=== PATIENT | female | born 1980 | race Caucasian/White ===

== ENCOUNTER 2025-10-01 13:32 | Outpatient (AMB) | payer BC, SELFPAY ==
[2025-10-01 13:44] VITALS: BMI 20.8
--- NOTE | 2025-10-01 13:44 | A.PHYSOV ---
Vital Signs 10/01/25 13:44 Height 5 ft 5 in Weight 125 lb BMI 20.8 Intake Visit Reasons: MRI followup Intake Note: Patient is a 45 year old female here to review MRI. Sales And Service Consultant Required: No Allergies naproxen Allergy (Unknown, Verified 10/01/25 13:46) Unknown Penicillins Allergy (Unknown, Verified 10/01/25 13:46) Unknown Sulfa (Sulfonamide Antibiotics) Allergy (Unknown, Verified 10/01/25 13:46) Unknown HPI Comments Details: History of Present Illness The patient is a 45 year old female presenting for evaluation of chronic low back pain. She reports her current pain level is a 4 out of 10, characterized as an ache that is worse in the mornings and at night, particularly with tossing and turning. The morning pain is sometimes severe enough to cause tears. The pain is located centrally in her low back and feels like it is spreading. She also experiences pain that wraps around into her right groin and some pain down the side of the leg consistent with iliotibial band irritation, but she denies any shooting pain, sciatica, numbness, or tingling. Aggravating factors include sitting or standing for long periods. She notes that stretching provides some relief. The pain affects her gait and has limited her ability to perform certain activities, such as lying on her stomach. She has previously tried physical therapy but found it difficult to maintain. Her past medical history is significant for polycystic kidney disease, which she confirms was seen on imaging. Patient has failed conservative treatment. I ordered MRI of the lumbar spine and we are reviewing it in person today. Pain Description - Location: Pain is primarily located in the central low back. - Radiation: Pain radiates into the right groin and down the side of the leg along the IT band. - Quality: Described as a deep ache, which can be brutal at times. - Severity: The patient rates her current pain as a 4 out of 10, though it can be severe enough to bring her to tears in the morning. - Timing and Duration: Pain is worse in the mornings and at night when turning over in bed. - Exacerbating Factors: Pain is worsened by sitting or standing for long periods and by leaning backward. - Relieving Factors: Stretching helps to alleviate the pain. - Associated Symptoms and Functional Impact: The pain affects her gait and ability to sleep, and she can no longer lie on her stomach comfortably. Results - MRI Lumbar Spine: Findings reviewed and discussed with the patient. - L5-S1: Degenerative spondylolisthesis and severe facet arthritis were noted. - Other findings: Small, non-significant bulging discs without nerve impingement and moderate arthritis at another level were identified. - CT Abdomen: Noted a cyst in the kidney, consistent with the patient's known history of polycystic kidney disease. [facility] Surgical History H/O: knee surgery History of cholecystectomy Previous section Social History Alcohol intake: current Alcohol intake frequency: holidays/special occasions only Patient Tobacco Use Status: Never used Tobacco Use of substances other than those prescribed or required for medical reasons: No Current occupational status: employed Review of Systems Narrative Review of Systems - Musculoskeletal: Reports central low back pain, right-sided groin pain, and pain along the iliotibial band. - Denies left-sided pain. - Neurological: Reports an altered gait. - Denies sciatica, shooting pain, numbness, or tingling. - Genitourinary: Reports a history of polycystic kidney disease. Physical Exam Exam Exam: Physical Exam Lumbar Spine: Examination of the lumbar spine, there is no visible swelling or deformity. She is tender to lower lumbar facets. She has full range of motion of the lumbar spine. She does have an increase in pain on the right with facet loading Special Tests: Lhermittes sign was negative Heel Toe walk is normal Left straight leg raise: Negative Right straight leg raise: Negative Special tests Harry test is negative Ganslen's test is negative SI Joint compression test negative Malinda test negative Piriformis stretch is negative Lower Extremities: Full range of motion bilateral lower extremities. No calf pain or edema. Neuro: Sensation: Intact to lower extremities bilaterally Strength L2 (Psoas): 5/5 on the left and 5/5 on the right. L3 (Quads): 5/5 on the left and 5/5 on the right. L4 (Ant tibialis): 5/5 on the left and 5/5 on the right. L5 (EHL) 5/5 on the left and 5/5 on the right. S1 (Gastroc): 5/5 on the left and 5/5 on the right. DTR L4: (Patellar) Left 2 Right 2 S1: (Achilles) Left 2 Right 2 Babinski Downgoing No pathologic clonus. No involuntary movement. Vital Signs: BMI result Body Mass Index 20.8 Assessment & Plan Assessment & Plan (1) Vertebrogenic low back pain: Code(s): M54.51 - Vertebrogenic low back pain Category: Medical Plan Pain Management - Analgesia: Current pain level is 4/10. - Affect: The patient reports the pain is affecting her quality of life, can bring her to tears, and makes her not want to do her usual activities. - Activities of Daily Living: The pain is worst in the morning and at night, disturbing sleep when she turns over. - She reports her gait is affected, and she feels she is not doing the activities she would like to be able to do. - Adverse effects of medications: Not discussed. - Aberrant behaviors: None identified. Plan Patient was informed and verbally consented to the use of an ambient scribe for clinic note documentation during this visit. 1. Chronic Low Back Pain With Lumbar Facet Arthropathy And Spondylolisthesis The patient's chronic central low back pain, which is exacerbated by extension, is consistent with the severe facet arthropathy and degenerative spondylolisthesis at L5-S1 identified on her recent MRI. Conservative treatments, including physical therapy, healthcare facility administrator, acupuncture, and medications, were discussed as options. Given the significant impact on her quality of life and her desire for more definitive treatment, the decision was made to proceed with a diagnostic and therapeutic procedure. A plan was made to perform bilateral facet joint injections at the two lower levels (L4-L5 and L5-S1) with cortisone to target the arthritis on the right. It was explained that this is not a cure but a temporary measure intended to provide 3-6 months of relief, improve quality of life, and facilitate increased activity. The procedure will be performed under fluoroscopic guidance to ensure accuracy and minimize risks such as infection, bleeding, or nerve damage. If the injections are successful, she may be a candidate for radiofrequency ablation in the future for longer-term relief. The office will obtain prior authorization from her insurance and contact her to schedule the procedure. Discussion Notes I reviewed the patient's lumbar spine MRI, which demonstrates degenerative spondylolisthesis and severe facet arthritis at L5-S1, consistent with her clinical presentation of central low back pain worse with extension. I explained to her that this is a progressive, degenerative condition for which there is no cure, but there are management options. We discussed conservative care, including physical therapy, as well as procedural options. I presented the option of a cortisone facet injection as a diagnostic and therapeutic step to reduce inflammation in the arthritic joints. I explained that the goal is temporary pain relief (approximately 3-6 months) to improve her quality of life and allow for increased physical activity. We discussed that the procedure is performed under x-ray guidance to ensure safety and precision, with small risks of infection, bleeding, or nerve damage. I also mentioned that if this provides good but temporary relief, radiofrequency ablation is a potential next step for longer-duration pain control. The patient expressed understanding and, given the current impact on her quality of life, wished to proceed with the injections. I will place an order for bilateral L4-5 and L5-S1 facet injections, and my office will handle the prior authorization and scheduling. Patient Instructions - Your back pain is caused by arthritis in the small joints of your lower spine. - We have ordered a steroid (cortisone) injection into these joints to help reduce the pain and inflammation. - This is not a cure, but it may provide pain relief for 3 to 6 months to help you be more active and improve your quality of life. - Our office will get approval from your insurance and will then call you to schedule the injection procedure. - The injection is done using an x-ray machine for safety and accuracy. - If the injection works well, we can discuss other options for longer-lasting pain relief in the future. - Continue your stretching exercises as they seem to provide some relief. Coding Level of Care Code Est Pt Level 3 (32442) Diagnoses Vertebrogenic low back pain M54.51
--- OUTSIDE RECORDS SUMMARY | 2025-10-01 19:42 | XMS_ITS | Encounter Summary ---
Author Organization [facility] Address [address] [place] [address] Care Team Providers Care Wood Milling Machine Tender Name Role Phone Juan Tony MD Primary Care Provider [phone] Encounter Details Date Type Department Care Team (Latest Contact Info) Description 03/27/2025 Lab Requisition [facility] - Main Lab [address] [facility] [place] [address] Melva Hernandez MD [address] [phone] Encounter for gynecological examination (general) (routine) without abnormal findings Social History Tobacco Use Types Packs/Day Years Used Date Smoking Tobacco: Never Smokeless Tobacco: Never Alcohol Use Standard Drinks/Week Comments Yes 0 (1 standard drink = 0.6 oz pur e alcohol) Comments No Sex and Gender Information Value Date Recorded Sex Assigned at Not on file Legal Sex Female 1:44 PM EST Gender Identity Not on file Sexual Orientation Not on file documented as of this encounter Plan of Treatment Upcoming Encounters Date Type Department Care Team (Late st Contact Info) Description 01/31/2026 1:40 PM EDT Appointment Radiology Department [address] [phone] documented as of this encounter Procedures Procedure Name Priority Date/Time Associated Diagnosis Comments PAP SMEAR Routine 03/26/2025 12:00 AM EDT Encounter for gynecological examination (general) (routine) without abnormal findings documented in this encounter Results * Pap smear (03/26/2025 12:00 AM EDT) Interpretation Negative for intraepithelial lesion or malignancy 03/28/2025 2:58 PM EDT [facility] at 1458 EDT General Categorization Negative 03/28/2025 2:58 PM EDT [facility] Specimen Adequacy Satisfactory for evaluation, endocervical/castellanos sformation zone component present 03/28/2025 2:58 PM EDT [facility] Pap Methodology Liquid Based Pap Test 03/28/2025 2:58 PM EDT [facility] Disclaimer The Pap test is a screening test which carries an inherent false negative rate. These test results should be correlated with the patient's clinical findings and history. This Pap test was processed using an automated screening system. Technical cytopathology services provided by [facility], at [address] [place] [address] (CLIA # [id number]/Sue Smith MD, Creping Machine Operator.) 03/28/2025 2:58 PM EDT [facility] Console Pap Interpretation Reported 03/28/2025 2:58 PM T [facility] Brushing/Spatula Cervix uteri structure / Unknown 03/26/2025 03/27/2025 7:20 AM EDT us Melva Hernandez MD LAB CYTOLOGY ORDERABLES Final Result [facility] [address] [place] [address], documented in this encounter Visit Diagnoses Diagnosis Encounter for gynecological examination (general) (routine) without abnormal findings documented in this encounter Care Teams Wood Milling Machine Tender Relationship Specialty Start Date End Date Juan Tony MD [address] [place] [address] PCP - General Internal Medicine 08/13/21 documented as of this encounter
--- OUTSIDE RECORDS SUMMARY | 2025-10-01 19:42 | XMS_ITS ---
Author Name [facility] Organization Unknown Care Team Organization Name Specialty Phone Email Start Date End Da te [facility] Juan Tony Primary Care 08/25/20222023
--- OUTSIDE RECORDS SUMMARY | 2025-10-01 19:42 | XMS_ITS | Clinical Summary ---
Author Organization [facility] [address] [facility] Address [address] [place] [address] Phone Care Team Providers Care Student Life Coordinator Name Role Phone Juan Tony MD Primary Care Provider [phone] Allergies Active Allergy Reactions Criticality Noted Date Comments Naproxen Other,Itching,Hives, Swell ing 04/05/2019 Penicillins Hives,Other 05/27/2017 Sulfa (Sulfonamide Antibiotics) Other 05/27/2017 Medications butalbital-acet aminophen-caffe ine 50-300-40 mg capsule Take 50 mg by mouth. 4 Active albuterol HFA (PROAIR HFA ; PROVENTIL HFA ; VENTOLIN HFA) 90 mcg/actuation inhaler Inhale 2 puffs by mouth. 4 Active levonorgestreL (MIRENA) 21 mcg/24hr (up to 8 yrs) 52 mg IUD 1 Device (1 each total) by intrauterine route. 7 Active MAGNESIUM ORAL Take 1 tablet by mouth at bedtime. Active cetirizine (ZyrTEC) 10 mg tablet Take 1 tablet (10 mg total) by mouth 1 (one) time each day. 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 Frias Starting treatment med 10/2019 Seasonal allergic rhinitis 03/11/2018 Nephrolithiasis 09/23/2017 Encounters Date Type Department Care Team Description 08/16/2025 5:42 PM EDT - 08/16/2025 11:59 PM EDT Hospital Encounter Radiology Department - [address] [address] Radiculopathy, lumbosacral region; Spondylosis, unspecified Discharge Disposition: Home or Self Care 08/02/2025 3:15 PM EDT Office Visit Walk-In Clinic - [address] [address] Rylee Juarez PA Seborrheic dermatitis (Primary Dx) from Last 3 Months Immunizations Immunization Administration Dates Next Due Influenza Quadravalent, MDCK , 0.5ml, preservative free (Flucelvax) 6mo and older 07/31/2020,08/08/2018 Influenza Quadrivalent, 0.5m l, preservative free (Fluarix; FluLaval; Fluzone) ages 6mo and older (Afluria) 3yo and older 08/03/2023,08/11/2022,07/31/2021,2016,07/31/2016 Influenza trivalent, 0.5mL, preservative free (Fluarix; FluLaval; Fluzone) ages 6mo and older (Afluria) 3 years and older 08/10/2024 Influenza, Unspecified 11/23/2021 Surgical History Surgery Date Site/Laterality Comments OTHER SURGICAL HISTORY 1998 Left PROCEDURE: ACLR YARED ALGRFT F/S/N/H/F/G/M/D GT 1ST 100 CM WISDOM TOOTH EXTRACTION PROCEDURE: HISTORICAL WISDOM TEETH EXTRACTION SECTION [id number] PROCEDURE: HISTORICAL DELIVERY CHOLECYSTECTOMY 2001 PROCEDURE: HISTORICAL CHOLECYSTECTOMY Medical History Medical History Date Comments Asthma DX:Asthma Gestational diabetes DX:Gestatio nal diabetes Family History Medical History Relation Name Comments Hypertension Brother Asthma Father Diabetes Father Hypertension Father Other: pulmonary embolism Father Hypertension Mother Other: polycystic kidney disease Mother Relation Name Status Comments Brother Father Mother Social History Tobacco Use Types Packs/Day Years Used Date Smoking Tobacco: Never Smokeless Tobacco: Never Tobacco Cessation:Counseling Given: Not Answered Alcohol Use Standard Drinks/Week Comments Yes 0 (1 standard drink = 0.6 oz pur e alcohol) Housing Instability Answer Date Recorde d Are you worried that in the next 2 months you may not have stable housing? No 05/18/2025 Food Access & Nutrition Answer Date Rec orded Do you have access to a vari ety of food including fruits and vegetables? Yes 05/18/2025 Access to Healthcare Answer Date Record ed Within the last 3 months, ho w many times did you visit the emergency department for your medical care? 0 05/18/2025 Health Literacy Answer Date Recorded How often do you need to hav e someone help you when you read instructions, pamphlets, or other written material from your doctor or pharmacy? Never 05/18/2025 Caregiver: How often do you need to have someone help you when you read instructions, pamphlets, or other written material from your doctor or pharmacy? Not on file 05/18/2025 Financial Risk Answer Date Recorded How hard is it for you to pa y for the very basics like food, housing, medical care, and air conditioning / heating? Not very hard 05/18/2025 Transportation Answer Date Recorded Has the lack of transportati on kept you from meetings, work, or from getting things needed for daily living? No Has the lack of transportati on kept you from medical appointments or from getting medications? No 05/18/2025 Social Isolation Answer Date Recorded How often do you feel lonely or isolated from th ose around you? Never 05/18/2025 Food Risk Answer Date Recorded Within the past 12 months we worried whether our food would run out before we got money to buy more. Never true 05/18/2025 Within the past 12 months th e food we bought just didn't last and we didn't have money to get more. Never true 05/18/2025 Dependent Care Answer Date Recorded Do you need help finding or paying for care for your loved ones. For example, children's institution attendant or elderly care for an older adult? No 05/18/2025 Education Answer Date Recorded Do you think completing more education or training, like finishing a GED, going to college, or learning a trade, would be helpful for you? No 05/18/2025 Employment and Income Answer Date Recor ded During the last four weeks, have you been actively looking for work? No 05/18/2025 Living Situation Answer Date Recorded What is your living situation? Unrecognized valu e 05/18/2025 Comments No Sex and Gender Information Value Date Recorded Sex Assigned at Not on file Legal Sex Female 1:44 PM EST Gender Identity Not on file Sexual Orientation Not on file Obstetrics History Para Term AB IAB SAB Ectopic Multiple Livin g Live Births 2 2 2 2 Date Outcome GA Total Labor Labor/2nd/3rd Weight Sex Type Anes PTL Amanda A1 A5 Name Clin Term Term Last Filed Vital Signs Vital Sign Reading Time Taken Comments Blood Pressure 124/77 08/02/2025 3:12 PM EDT Pulse 79 08/02/2025 3:12 PM EDT Temperature 36.7 C (98 F) 08/02/2025 3:12 PM EDT Respiratory Rate - - Oxygen Saturation 98% 08/02/2025 3:12 PM EDT Inhaled Oxygen Concentration - - Weight 56.4 kg (124 lb 6.4 oz) 05/22/2025 8:11 A M EDT Height - - Body Mass Index - - Plan of Treatment Upcoming Encounters Date Type Department Care Team (Late st Contact Info) Description 01/31/2026 1:40 PM EDT Appointment Radiology Department [address] [id number] Health Maintenance Due Date Last Done Comments Drug Screen 1982 Non-Opioid Controlled Substance Agreement 1982 DTaP,Tdap,and Td Vaccines (1 - Tdap) 2001 Hepatitis B Vaccines (1 of 3 - 19+ 3-dose series) 2001 Pneumococcal Vaccine: Pediatrics (0 to 5 Years) and At-Risk Patients (6 to 49 Years) (1 of 2 - PCV) 2001 HPV Vaccines (1 - 3-dose SCDM series) 2009 HIV Screening 09/26/2022 Hepatitis C Screening 09/26/2022 COVID-19 Vaccine ( season) 2025 08/11/2022, 01/05/2022, 01/24/2021, Additional history exists Social Influencers of Health Screening 05/18/2026 05/18/2025 Breast Cancer Screening 01/25/2027 01/25/2025, 01/18 Cervical Cancer Screening: Pap Smear 03/26/2028 03/26/2025 Cholesterol Screening (Lipid Panel) 02/02/2029 02/03/2024, 02/03/2024 RSV Immunization Adult Patients (1 - 1-dose 75+ series) 2057 Depression Screening Completed 05/18/2025 Influenza Vaccine Completed 07/31/2025, , 08/03/2023, Additional history exists HIB Vaccines Aged Out No longer eligi ble based on patient's age to complete this topic Hepatitis A Vaccines Aged Out No long er eligible based on patient's age to complete this topic IPV Vaccines Aged Out No longer eligi ble based on patient's age to complete this topic MMR Vaccines Aged Out No longer eligi ble based on patient's age to complete this topic Meningococcal ACWY Vaccine Aged Out N o longer eligible based on patient's age to complete this topic Meningococcal B Vaccine Aged Out No l onger eligible based on patient's age to complete this topic RSV Immunization Patients Under 20 months Aged Out No longer eligible based on patient's age to complete this topic Varicella Vaccines Aged Out No longer eligible based on patient's age to complete this topic Procedures Procedure Name Priority Date/Time Associated Diagnosis Comments MR LUMBAR SPINE WO CONTRAST Routine 08/16/2025 6:24 PM EDT Radiculopathy, lumbosacral region Spondylosis, unspecified PAP SMEAR Routine 03/26/2025 12:00 AM EDT Encounter for gynecological examination (general) (routine) without abnormal findings MG MAMMO DIGITAL SCREENING W DIANA BILAT Routine 01/25/2025 2:54 PM EDT Encounter for screening mammogram for breast cancer LIPID PANEL Routine 02/03/2024 from Last 3 Months or Most Recently Relevant to Health Maintenance Results * MR Lumbar Spine wo Contrast (08/16/2025 6:24 PM EDT) Anatomical Region Laterality Modality L-spine, Spine Magnetic Resonan ce 08/17/2025 11:0 5 AM EDT Impressions 08/17/2025 11:26 AM EDT Grade 1 spondylolisthesis at L5-S1. Multilevel bony and discogenic degenerative changes as described. No focal nerve root compression. -------- FINAL REPORT -------- Dictated By: Olga Reilly Dictated Date: 08/17/2025 11:05 ET Assigned Physician: Olga Reilly Reviewed and Electronically Signed By: Olga Reilly Signed Date: 08/17/2025 11:26 ET Workstation ID: [id number] Transcribed By: Self Edit Transcribed Date: 08/17/2025 11:05 ET Narrative 08/17/2025 11:26 AM EDT MR LUMBAR SPINE WO CONTRAST MR OF THE LUMBAR SPINE WITHOUT CONTRAST HISTORY: Low back pain radiating to into hip. Technique: MR of the lumber spine was performed without contrast utilizing the standard departmental protocol. COMPARISON: Lumbar spine 05/22/2025. FINDINGS: Conus medullaris terminates at the [L1] level, and demonstrates normal signal. There is no abnormal thickening or clumping of the cauda equina nerve roots. There is 7 mm anterolisthesis of L5 on S1. Vertebral body heights are normal. Marrow signal is normal. There are rounded T2 hyperintensities in both kidneys, statistically representing cysts. At T12-L1, no significant disc herniation, central spinal canal stenosis or neuroforaminal narrowing. At L1-L2, no significant disc herniation, central spinal canal stenosis or neuroforaminal narrowing. At L2-L3, no significant disc herniation, central spinal canal stenosis or neuroforaminal narrowing. At L3-L4, no significant disc herniation, central spinal canal stenosis or neuroforaminal narrowing. There is mild right facet arthropathy. At L4-L5, there is disc bulging with small central disc protrusion, mild bilateral neural foraminal narrowing, and moderate bilateral facet arthropathy. No central canal stenosis. At L5-S1, there is 7 mm anterolisthesis of L5 on S1. There is disc desiccation, mild disc space narrowing, disc bulging, moderate bilateral neuroforaminal narrowing, and severe bilateral facet arthropathy. No central canal stenosis. Procedure Note Olga Reilly MD - 08/17/2025 MR LUMBAR SPINE WO CONTRAST MR OF THE LUMBAR SPINE WITHOUT CONTRAST HISTORY: Low back pain radiating to into hip. Technique: MR of the lumber spine was performed without contrast utilizingthe standard departmental protocol. COMPARISON: Lumbar spine 05/22/2025. FINDINGS: Conus medullaris terminates at the [L1] level, and demonstratesnormal signal. There is no abnormal thickening or clumping of the caudaequina nerve roots. There is 7 mm anterolisthesis of L5 on S1. Vertebralbody heights are normal. Marrow signal is normal. There are rounded [id number] in both kidneys, statistically representing cysts. At T12-L1, no significant disc herniation, central spinal canal stenosisor neuroforaminal narrowing. At L1-L2, no significant disc herniation, central spinal canal stenosis orneuroforaminal narrowing. At L2-L3, no significant disc herniation, central spinal canal stenosis orneuroforaminal narrowing. At L3-L4, no significant disc herniation, central spinal canal stenosis orneuroforaminal narrowing. There is mild right facet arthropathy. At L4-L5, there is disc bulging with small central disc protrusion, mildbilateral neural foraminal narrowing, and moderate bilateral facetarthropathy. No central canal stenosis. At L5-S1, there is 7 mm anterolisthesis of L5 on S1. There is discdesiccation, mild disc space narrowing, disc bulging, moderate bilateralneuroforaminal narrowing, and severe bilateral facet arthropathy. Nocentral canal stenosis. IMPRESSION: Grade 1 spondylolisthesis at L5-S1. Multilevel bony and discogenicdegenerative changes as described. No focal nerve root compression. -------- FINAL REPORT -------- Dictated By: Olga Reilly Dictated Date: 08/17/2025 11:05 ET Assigned Physician: Olga Reilly Reviewed and Electronically Signed By: Olga Reilly Signed Date: 08/17/2025 11:26 ET Workstation ID: [id number] Transcribed By: Self Edit Transcribed Date: 08/17/2025 11:05 ET us Champ BARROS IMG MRI PROCEDURES Final Resul t * Pap smear (03/26/2025 12:00 AM EDT) Interpretation Negative for intraepithelial lesion or malignancy 03/28/2025 2:58 PM EDT [facility] at 1458 EDT General Categorization Negative 03/28/2025 2:58 PM EDT [facility] Specimen Adequacy Satisfactory for evaluation, endocervical/castellanos sformation zone component present 03/28/2025 2:58 PM EDT [facility] Pap Methodology Liquid Based Pap Test 03/28/2025 2:58 PM EDT [facility] Disclaimer The Pap test is a screening test which carries an inherent false negative rate. These test results should be correlated with the patient's clinical findings and history. This Pap test was processed using an automated screening system. Technical cytopathology services provided by [facility], at [address] [place] [address] (CLIA # [id number]/Sue Smith MD, Item Processing Clerk.) 03/28/2025 2:58 PM EDT [facility] Console Pap Interpretation Reported 03/28/2025 2:58 PM EDT [facility] Brushing/Spatula Cervix uteri structure / Unknown 03/26/2025 03/27/2025 7:20 AM EDT Melva Hernandez MD LAB CYTOLOGY ORDERABLES Final Result [facility] [address] [place] [id number], * MG Mammo Digital Screening w Diana bilat (01/25/2025 2:54 PM EDT) Anatomical Region Laterality Modality Breast Bilateral Mammography 01/26/2025 8:06 AM EDT Impressions 01/26/2025 8:13 AM EDT Benign. BI-RADS CATEGORY: 1 - NEGATIVE RECOMMENDATION: Screening bilateral mammogram is recommended in 1 year. Mammo Location: [facility], [address] [place] [address], [id number], . Minimal -------- FINAL REPORT -------- Dictated By: Olga Reilly Dictated Date: 01/26/2025 08:06 ET Assigned Physician: Olga Reilly Reviewed and Electronically Signed By: Olga Reilly Signed Date: 01/26/2025 08:13 ET Workstation ID: [id number] Transcribed By: Self Edit Transcribed Date: 01/26/2025 08:06 ET Narrative 01/26/2025 8:13 AM EDT CLINICAL: 44 years old, Female, routine annual exam. COMPARISON: Mammogram 01/19/2024. TECHNIQUE: Bilateral MLO and CC views were obtained digitally with 3-D mammogram (digital breast tomosynthesis). Computer-aided detection was utilized in evaluation of this exam (CAD). FINDINGS: There is no evidence of suspicious mass or architectural distortion. No worrisome calcifications are evident. There has been no significant change from prior exam(s). BREAST DENSITY: C - The breasts are heterogeneously dense which may obscure small masses. Procedure Note Olga Reilly MD - 01/26/2025 CLINICAL: 44 years old, Female, routine annual exam. COMPARISON: Mammogram 01/19/2024. TECHNIQUE: Bilateral MLO and CC views were obtained digitally with 3-Dmammogram (digital breast tomosynthesis). Computer-aided detection wasutilized in evaluation of this exam (CAD). FINDINGS: There is no evidence of suspicious mass or architectural distortion. Noworrisome calcifications are evident. There has been no significantchange from prior exam(s). BREAST DENSITY: C - The breasts are heterogeneously dense which mayobscure small masses. IMPRESSION: Benign. BI-RADS CATEGORY: 1 - NEGATIVE RECOMMENDATION: Screening bilateral mammogram is recommended in 1 year. Mammo Location: [facility], [address] [place] [address], [id number], . Minimal -------- FINAL REPORT -------- Dictated By: Olga Reilly Dictated Date: 01/26/2025 08:06 ET Assigned Physician: Olga Reilly Reviewed and Electronically Signed By: Olga Reilly Signed Date: 01/26/2025 08:13 ET Workstation ID: [id number] Transcribed By: Self Edit Transcribed Date: 01/26/2025 08:06 ET Juan Tony MD IMG BI PROCEDURES Final Result * Lipid panel (02/03/2024) LDL/HDL Ratio 3 Triglycerides 38 mg/dL Cholesterol 125 mg/dL HDL 51 mg/dL LDL Cholesterol 67 mg/dL Blood Venous blood specimen / Unknown Historical Provider LAB BLOOD ORDERABLES Veronica l Result from Last 3 Months or Most Recently Relevant to Health Maintenance Insurance [facility] Care Teams Student Life Coordinator Relationship Specialty Start Date End Date Juan Tony MD [address] [place] [address] [place] [address] PCP - General Internal Medicine 08/13/21
--- OUTSIDE RECORDS SUMMARY | 2025-10-01 19:42 | XMS_ITS | Patient Health Record ---
Author Organization [facility] Address [address] [facility] [place] [address] Care Team Providers Care Route Sales Delivery Drivers Supervisor Name Role Phone Juan Tony Primary Care Provider Unavailabl e Black, Taryn Unavailable [phone] Allergies Allergen (clinical drug ingredient) Drug/Non Drug Allergy documented on EMR Reaction Allergy Type Onset Date Status Aleve Itching Drug Allergy Active Keflex diarrhea Drug Allergy Active Penicillin Hives Drug Allergy Active Substance with sulfonamide structure and antibacterial mechanism of action (substance) Sulfa Antibiotics Unknown Drug Allergy Active Reason For Referral No Information Medications Medication SIG (Take, Route, Frequency, Duration) Notes Start Date End Date Status Doxycycline Hyclate 100 MG 1 capsule Orally Once a day; Duration: 10 day(s) 10/22/2020 Not-Taking Social History Tobacco Use: Social History Observation Description Date Details (start date - stop date) Never Smoker NA - NA Tobacco Use/Smoking Question Answer Notes Are you a: nonsmoker Additional Findings: Tobacco Non-User Aggressive non-smoker Alcohol Screen Question Answer Notes Did you have a drink contain ing alcohol in the past year? Yes How often did you have a dri nk containing alcohol in the past year? 2 to 4 times a month (2 points) How many drinks did you have on a typical day when you were drinking in the past year? 1 or 2 drinks (0 point) How often did you have 6 or more drinks on one occasion in the past year? Never (0 point) Points 2 Interpretation Negative Tobacco use other than smoking: Question Answer Notes Are you an other tobacco user? No Problems Problem Type SNOMED Code ICD Code Onset Dates Problem Status W/U Status Risk Notes Problem Non-pressure chronic ulcer of other part of right foot limited to breakdown of skin (L97.511) Active confirmed Plan Of Treatment Pending Test Test Name Order Date [id number] Destruction, 10-3110/22/2020 [id number] Destruction, 10-3111/12/2020 [id number]-Wsoz Destruction, 10-3112/03/2021 [id number] Plate 10/22/2020 [id number] Plate 12/03/2021 [id number] 02/10/2022 77774- Debride <25 sq cm 11/12/2020 Insurance Providers Payer Name Payer Address Payer Phone Subscriber Number Group Number Insured Name Patient Relationship to Insured Coverage Start Date Coverage End Date [facility] [address] [place] [address] [id number] Robbie Newby Spouse - patient is the spouse of the insured Medical (General) History Medical History History ICD Code asthma Headaches/Migraines Kidney disease Chicken pox Surgical History Surgery Date(Month/Year) acl 1998 gall bladder 2001 section x2 2005 & 2006
== END 2025-10-01 14:29 | disposition home or self-care (01) ==
LOC: HO.HPHYS 13:32
PROVIDERS: PCP Internal Medicine; Visit Provider Physician Assistant
DX: M54.51 Vertebrogenic low back pain (principal)
CPT/HCPCS: 99213